=== PATIENT | male | born 1970 | race Caucasian/White ===

== ENCOUNTER 2022-03-06 23:45 | Emergency (ER) | payer MEDICAID ==
[2022-03-07] MEDS ORDERED: Lidocaine 1% with EPINEPHrine 1:100,000 10 ML MDV ONE (00:13)
[2022-03-07] MEDS ORDERED: Lidocaine 1% with EPINEPHrine 1:100,000 10 ML MDV INJECT ONE (00:16)
== END 2022-03-07 00:43 | disposition home or self-care (01) ==
LOC: KA.ED 23:45
DX: S61.412A Laceration without foreign body of left hand, initial encounter (principal); W26.0XXA Contact with knife, initial encounter
CPT/HCPCS: 12002; 99282-25; 99283

== ENCOUNTER 2023-06-19 11:49 | Emergency (ER) | payer MEDICAID | END 2023-06-19 12:28 | disposition home or self-care (01) | LOC: KA.ED 11:49 | DX: K31.89 Other diseases of stomach and duodenum (principal); I10 Essential (primary) hypertension | CPT/HCPCS: 99283; 99284 ==

== ENCOUNTER 2024-05-05 15:15 | Emergency (ER) | payer MEDICAID ==
[2024-05-05] MEDS: HYDROmorphone 1 MG/ML Syringe IVPUSH ONE (15:48)
[2024-05-05] MEDS: Ketorolac 30 MG/ML SDV IVPUSH ONE (16:25)
[2024-05-05 16:49] VITALS: BP 130/90; PULSE 77
== END 2024-05-05 17:19 | disposition home or self-care (01) ==
LOC: KA.ED 15:15
DX: M25.462 Effusion, left knee (principal); Z96.652 Presence of left artificial knee joint; I10 Essential (primary) hypertension
CPT/HCPCS: 96374; 96375; 99283-25; J1170; J1885

== ENCOUNTER 2024-06-22 11:47 | Emergency (ER) | payer MEDICAID ==
[2024-06-22] MEDS: Ketorolac 30 MG/ML SDV IM ONE (12:05)
[2024-06-22 12:09] LABS: BASOPHILS ABSOLUTE AUTO 0.06 10^3/uL (0.00-0.10); BASOPHILS PERCENT AUTO 0.8 % (0.0-1.0); EOSINOPHILS ABSOLUTE AUTO 0.18 10^3/uL (0.10-0.30); EOSINOPHILS PERCENT AUTO 2.5 % (1.0-3.0); HEMATOCRIT 43.1 % (40.0-52.0); IMMATURE GRAN ABSOLUTE AUTO 0.01 10^3/uL (0.00-0.50); IMMATURE GRAN PERCENT AUTO 0.1 % (0.0-5.0); LYMPHOCYTES ABSOLUTE AUTO 2.01 10^3/uL (1.00-4.00); LYMPHOCYTES PERCENT AUTO 27.6 % (20.0-40.0); MEAN CORPUSCULAR HEMOGLOBIN 32.3 pg (27.0-31.0); MEAN CORPUSCULAR HGB CONC 32.5 g/dL (32.0-36.0); MEAN CORPUSCULAR VOLUME 99.3 fL (82.0-92.0); MONOCYTES ABSOLUTE AUTO 0.53 10^3/uL (0.10-0.80); MONOCYTES PERCENT AUTO 7.3 % (2.0-8.0); NEUTROPHILS ABSOLUTE AUTO 4.48 10^3/uL (2.50-7.00); NEUTROPHILS PERCENT AUTO 61.7 % (50.0-70.0); PLATELET COUNT,PLT 354 10^3/uL (150-400); RED BLOOD CELL COUNT 4.34 10^6/uL (4.50-6.00); RED CELL DISTRIBUTION WIDTH 13.3 % (11.5-14.5); WHITE BLOOD CELL COUNT,WBC 7.27 10^3/uL (5.00-10.00)
== END 2024-06-22 12:55 | disposition home or self-care (01) ==
LOC: KA.ED 11:47
DX: T84.89XA Other specified complication of internal orthopedic prosthetic devices, implants and grafts, initial encounter (principal); M25.662 Stiffness of left knee, not elsewhere classified; Z96.652 Presence of left artificial knee joint; I10 Essential (primary) hypertension; J44.9 Chronic obstructive pulmonary disease, unspecified
CPT/HCPCS: 36415; 73560-LT; 85025; 86140; 96372; 99283; J1885